=== PATIENT | male | born 1955 | race Caucasian/White ===

== ENCOUNTER 2018-12-11 20:03 | Emergency (ER) | payer OTHER ==
[~2018-12-11] VITALS: Ht 162.6 cm; Wt 59.0 kg
[2018-12-11 20:03] VITALS: BP 148/90
[2018-12-11] MEDS ORDERED: ACETAMINOPHEN 325 MG TAB PO ONE (20:15)
--- NOTE | 2018-12-11 21:17 | NUR ---
PT AMBULATED TO ER BED 3
--- NOTE | 2018-12-11 21:20 | NUR ---
63 Y/O MALE PRESENTS TO ED, C/O FEVER. PT STATES HE FEELS LIKE HE HAS A FEVER, STATED "I DON'T FEEL GOOD." TEMP DURING ASSESSMENT WAS 98.3 TEMPORAL. PT HAS HX OF HTN AND DM. PT VSS. ERMD AWARE. WILL CONTINUE TO MONITOR.
[2018-12-11] MEDS ORDERED: NACL 0.9% 1,000 ML IV SCH (21:53)
[2018-12-11] MEDS ORDERED: ONDANSETRON 4 MG/2 ML VIAL IVP ONE (21:55)
[2018-12-11] MEDS ORDERED: KETOROLAC 30 MG/ML VIAL IVP ONE (21:55)
[2018-12-11 22:44] LABS: BASOPHILS # (AUTO) 0.1 K/uL (0.00-0.22); BASOPHILS % (AUTO) 0.6 % (0.0-2.0); EOSINOPHILS # (AUTO) 0.1 K/uL (0-0.4); EOSINOPHILS % (AUTO) 0.5 % (0.0-4.0); HEMATOCRIT 35.2 % (36-52); HEMOGLOBIN 11.7 g/dL (12.0-18.0); LYMPHOCYTES # (AUTO) 1.7 K/uL (2.0-11.5); LYMPHOCYTES % (AUTO) 13.4 % (20.5-51.1); MEAN CORPUSCULAR HEMOGLOBIN 29 pg (27-31); MEAN CORPUSCULAR HGB CONC 33 g/dL (33-37); MEAN CORPUSCULAR VOLUME 86.3 fL (80-94); MONOCYTES # (AUTO) 0.6 K/uL (0.8-1.0); MONOCYTES % (AUTO) 4.6 % (1.7-9.3); NEUTROPHILS # (AUTO) 10.3 K/uL (1.8-7.7); NEUTROPHILS % (AUTO) 80.9 % (42.2-75.2); PLATELET COUNT (AUTO) 292 K/uL (140-450); RED BLOOD CELL COUNT(AUTO) 4.08 MIL/uL (4.20-6.10); RED CELL DISTRIBUTION WIDTH 17.3 % (11.6-13.7); WHITE BLOOD COUNT (AUTO) 12.8 K/uL (4.8-10.8)
[2018-12-11 22:52] LABS: PROTHROMBIN TIME 9.2 secs (10.8-13.4)
[2018-12-11 22:53] LABS: APPEARANCE,URINE HAZY (CLEAR); BILIRUBIN,URINE NEGATIVE (NEGATIVE); BLOOD, URINE 1+ (NEGATIVE); COLOR,URINE YELLOW (YELLOW); LEUKOCYTE ESTERASE ,URINE NEGATIVE (NEGATIVE); NITRITE, URINE NEGATIVE (NEGATIVE); UGLUCOSE 3+ (NEGATIVE)
[2018-12-11 23:05] LABS: RBC,URINE 0-5 /HPF (0-5)
[2018-12-11 23:18] LABS: ALBUMIN 3.4 g/dL (3.4-5.0); ANION GAP 15.1 (8-16); CARBON DIOXIDE 22.9 mmol/L (21-32); CREATININE 1.4 mg/dL (0.7-1.3); TOTAL BILIRUBIN 0.3 mg/dL (0.0-1.0)
[2018-12-11] MEDS ORDERED: LEVOFLOXACIN 500 MG/D5W PREMIX 100 ML IV ONE (23:25)
--- NOTE | 2018-12-11 23:58 | NUR ---
PT DISCHARGED WITH PAPERWORK. RX TRAMADOL, MOTRIN, DOXYCYCLINE. EDUCATED PT REGARDING MEDICATION AND S/E. EDUCATED PT REGARDING DISCHARGE DIAGNOSIS. PT VERBALIZED UNDERSTANDING OF TEACHING. TOLD PT TO FOLLOW UP WITH PCP AND WHEN TO RETURN TO ED. PT VSS. ALL QUESTIONS ANSWERED.
[2018-12-12 00:08] VITALS: BP 131/78
== END 2018-12-11 23:58 | disposition home or self-care (01) ==
LOC: MED 20:03
DX: N30.90 Cystitis, unspecified without hematuria (principal)
CPT/HCPCS: 36415; 71045; 74176; 80053; 81001; 83605; 83880; 84484; 85025; 85610; 85730; 87040; 87086; 87186; 93005; 96365; 96374; 96375; 99284; J1885; J1956; J2405; J7030